=== PATIENT | male | born 1995 | race African-American/Black ===

== ENCOUNTER 2016-12-27 06:02 | Emergency (ER) | payer MEDICAID, OTHER ==
[~2016-12-27] VITALS: Ht 172.7 cm; Wt 78.0 kg
[2016-12-27 07:30] VITALS: BP 122/73
== END 2016-12-27 08:35 | disposition home or self-care (01) ==
LOC: ER 06:02
DX: R05 Cough (principal); M26.622 Arthralgia of left temporomandibular joint
CPT/HCPCS: 71020; 99284

== ENCOUNTER 2019-10-01 16:50 | Emergency (ER) | payer MEDICAID ==
[~2019-10-01] VITALS: Ht 172.7 cm; Wt 80.9 kg
[2019-10-01 18:00] VITALS: BP 126/60
== END 2019-10-01 18:45 | disposition left against medical advice (07) ==
LOC: ER 16:50
DX: M25.512 Pain in left shoulder (principal); Z53.21 Procedure and treatment not carried out due to patient leaving prior to being seen by health care provider